=== PATIENT | male | born 1960 | race Two or more races ===

== ENCOUNTER 2017-03-21 05:47 | Emergency (ER) | payer BC ==
[2017-03-21 05:56] VITALS: TEMP 98.2
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
--- NOTE | 2017-03-21 07:42 | US ---
EXAMINATION TYPE: US venous doppler duplex LE LT DATE OF EXAM: 03/21/2017 7:32 AM COMPARISON: NONE CLINICAL HISTORY: 56-year-old male Pain. SIDE PERFORMED: Left TECHNIQUE: The lower extremity deep venous system is examined utilizing real time linear array sonog conner with graded compression, doppler sonography and color-flow sonography. FINDINGS: VESSELS IMAGED: External Iliac Vein (EIV) Common Femoral Vein Deep Femoral Vein Greater Saphenous Vein * Femoral Vein Popliteal Vein Small Saphenous Vein * Proximal Calf Veins (* superficial vessels) Left Leg: Positive for DVT starting in the CFV/DFV junction and extending through into the proximal calf veins. There is some trickle flow in the superficial femoral vein but it is noncompressible. IMPRESSION: Exam positive for left lower extremity DVT extending from the common femoral vein/deep femoral vein j unction down into the proximal calf veins.
[2017-03-21] MEDS ORDERED: APIXABAN 5 MG TAB PO STA (07:43)
[2017-03-21] MEDS ORDERED: HYDROcodone/APAP 5-325MG 1 EACH TAB PO STA (07:53)
[2017-03-21 08:04] VITALS: BP 135/75; PULSE 88; RESP 18
== END 2017-03-21 08:04 | disposition home or self-care (01) ==
LOC: EC 05:47
DX: I82.412 Acute embolism and thrombosis of left femoral vein (principal); F17.200 Nicotine dependence, unspecified, uncomplicated; Z98.890 Other specified postprocedural states; Z88.0 Allergy status to penicillin; Z91.048 Other nonmedicinal substance allergy status
CPT/HCPCS: 99283

== ENCOUNTER 2018-03-19 12:03 | Inpatient (IN) | payer BC ==
[2018-03-19] MEDS ORDERED: IPRATROPIUM-ALBUTEROL 3 ML NEB INHALATION STA (12:28)
[2018-03-19] MEDS ORDERED: methylPREDNISolone SOD SUCCI 125 MG/2 ML VIAL IV STA (12:33)
--- NOTE | 2018-03-19 12:44 | ED ---
URI HPI - General Chief Complaint: Upper Respiratory Infection Stated Complaint: collapsed lung Time Seen by Provider: 03/19/18 12:27 Source: patient, RN notes reviewed Mode of arrival: ambulatory Limitations: no limitations - History of Present Illness Initial Comments: This a 57-year-old male presents emergency Department chief complaint of cough congestion shortness of breath. Patient states that symptoms started Tuesday with sneezing and has progressively gotten worse. Patient states he feels chest congestion or shortness breath. Patient is a daily smoker. Patient reports no fever at home though has a temperature 99.8 in emergency department. He has received Tylenol white. Patient denies any nausea vomiting. He does feel pressure in his chest. Patient states he went to [facility] and sent here for further evaluation. - Related Data Previous Rx's Medication Instructions Recorded Apixaban [Eliquis] 5 mg PO BID #30 tablet 03/21/17 Apixaban [Eliquis] 10 mg PO BID #28 tab 03/21/17 HYDROcodone/APAP 5-325MG [Dunbar 1 tab PO Q6HR PRN #30 tab 03/21/17 5-325] Allergies Allergy/AdvReac Type Severity Reaction Status Date / Time Penicillins Allergy Rash/Hives Verified 03/19/18 12:26 wool Allergy Rash/Hives Uncoded 03/19/18 12:26 Review of Systems ROS Statement: Those systems with pertinent positive or pertinent negative responses have been documented in the HPI. ROS Other: All systems not noted in ROS Statement are negative. Past Medical History Past Medical History: Hypertension Additional Past Medical History / Comment(s): diarrhea, arthritis History of Any Multi-Drug Resistant Organisms: None Reported Past Surgical History: Orthopedic Surgery Additional Past Surgical History / Comment(s): surgery for fx left leg x 3, rt hand Past Anesthesia/Blood Transfusion Reactions: Previous Problems w/ Anesthesia Additional Past Anesthesia/Blood Transfusion Reaction / Comment(s): "i woke up during surgery" Smoking Status: Current every day smoker Past Alcohol Use History: Heavy Past Drug Use History: Marijuana - Past Family History Father Family Medical History: Cancer General Exam Limitations: no limitations General appearance: alert, in no apparent distress Head exam: Present: atraumatic, normocephalic, normal inspection Eye exam: Present: normal appearance, PERRL, EOMI. Absent: scleral icterus, conjunctival injection, periorbital swelling ENT exam: Present: normal exam, normal oropharynx, mucous membranes moist Neck exam: Present: normal inspection. Absent: tenderness, meningismus, lymphadenopathy Respiratory exam: Present: wheezes, rhonchi, decreased breath sounds. Absent: respiratory distress, rales, stridor Cardiovascular Exam: Present: regular rate, normal rhythm, normal heart sounds. Absent: systolic murmur, diastolic murmur, rubs, gallop, clicks GI/Abdominal exam: Present: soft, normal bowel sounds. Absent: distended, tenderness, guarding, rebound, rigid Course Vital Signs 03/19/18 03/19/18 03/19/18 12:23 12:44 13:11 Temperature 99.8 F H Pulse Rate 89 98 88 Respiratory 18 20 Rate Blood Pressure 162/76 O2 Sat by Pulse 92 L 97 Oximetry 03/19/18 03/19/18 03/19/18 13:40 13:47 13:56 Temperature Pulse Rate 94 91 Respiratory Rate Blood Pressure O2 Sat by Pulse 90 L Oximetry 03/19/18 14:21 Temperature Pulse Rate Respiratory Rate Blood Pressure O2 Sat by Pulse 97 Oximetry Medical Decision Making - Lab Data Result diagrams: 03/19/18 12:43 03/19/18 12:43 Lab Results 03/19/18 03/19/18 03/19/18 Range/Units 12:38 12:43 12:43 WBC 13.9 H (3.8-10.6) k/uL RBC 5.19 (4.30-5.90) m/uL Hgb 15.9 (13.0-17.5) gm/dL Hct 48.3 (39.0-53.0) % MCV 93.1 (80.0-100.0) fL MCH 30.7 (25.0-35.0) pg MCHC 33.0 (31.0-37.0) g/dL RDW 12.7 (11.5-15.5) % Plt Count 204 (150-450) k/uL Neutrophils % 83 % Lymphocytes % 8 % Monocytes % 6 % Eosinophils % 3 % Basophils % 0 % Neutrophils # 11.5 H (1.3-7.7) k/uL Lymphocytes # 1.1 (1.0-4.8) k/uL Monocytes # 0.8 (0-1.0) k/uL Eosinophils # 0.4 (0-0.7) k/uL Basophils # 0.0 (0-0.2) k/uL Sodium 142 (137-145) mmol/L Potassium 4.3 (3.5-5.1) mmol/L Chloride 104 (98-107) mmol/L Carbon Dioxide 23 (22-30) mmol/L Anion Gap 15 mmol/L BUN 13 (9-20) mg/dL Creatinine 0.70 (0.66-1.25) mg/dL Est GFR (CKD-EPI)AfAm >90 (>60 ml/min/1.73 sqM) Est GFR (CKD-EPI)NonAf >90 (>60 ml/min/1.73 sqM) Glucose 101 H (74-99) mg/dL Plasma Lactic Acid Javier (0.7-2.0) mmol/L Calcium 9.5 (8.4-10.2) mg/dL Total Bilirubin 0.8 (0.2-1.3) mg/dL AST 19 (17-59) U/L ALT 37 (21-72) U/L Alkaline Phosphatase 101 (38-126) U/L Troponin I (0.000-0.034) ng/mL Total Protein 7.3 (6.3-8.2) g/dL Albumin 4.3 (3.5-5.0) g/dL Influenza Type A RNA Not Detected (Not Detectd) Influenza Type B (PCR) Not Detected (Not Detectd) 03/19/18 03/19/18 Range/Units 12:43 12:43 WBC (3.8-10.6) k/uL RBC (4.30-5.90) m/uL Hgb (13.0-17.5) gm/dL Hct (39.0-53.0) % MCV (80.0-100.0) fL MCH (25.0-35.0) pg MCHC (31.0-37.0) g/dL RDW (11.5-15.5) % Plt Count (150-450) k/uL Neutrophils % % Lymphocytes % % Monocytes % % Eosinophils % % Basophils % % Neutrophils # (1.3-7.7) k/uL Lymphocytes # (1.0-4.8) k/uL Monocytes # (0-1.0) k/uL Eosinophils # (0-0.7) k/uL Basophils # (0-0.2) k/uL Sodium (137-145) mmol/L Potassium (3.5-5.1) mmol/L Chloride (98-107) mmol/L Carbon Dioxide (22-30) mmol/L Anion Gap mmol/L BUN (9-20) mg/dL Creatinine (0.66-1.25) mg/dL Est GFR (CKD-EPI)AfAm (>60 ml/min/1.73 sqM) Est GFR (CKD-EPI)NonAf (>60 ml/min/1.73 sqM) Glucose (74-99) mg/dL Plasma Lactic Acid Javier 1.3 (0.7-2.0) mmol/L Calcium (8.4-10.2) mg/dL Total Bilirubin (0.2-1.3) mg/dL AST (17-59) U/L ALT (21-72) U/L Alkaline Phosphatase (38-126) U/L Troponin I <0.012 (0.000-0.034) ng/mL Total Protein (6.3-8.2) g/dL Albumin (3.5-5.0) g/dL Influenza Type A RNA (Not Detectd) Influenza Type B (PCR) (Not Detectd) Disposition Clinical Impression: COPD exacerbation, Hypoxia, Dyspnea Disposition: ADMITTED IP TO THIS HOSP Condition: Fair Referrals: Magdi Almanzar MD [Primary Care Provider] - 1-2 days
[2018-03-19 13:02] LABS: Basophils % (A) 0 %; Eosinophils # (A) 0.4 k/uL (0-0.7); Eosinophils % (A) 3 %; HCT 48.3 % (39.0-53.0); HGB 15.9 gm/dL (13.0-17.5); Lymphocytes # (A) 1.1 k/uL (1.0-4.8); Lymphocytes % (A) 8 %; MCH 30.7 pg (25.0-35.0); MCV 93.1 fL (80.0-100.0); Mean Platelet Volume 6.9; Monocytes # (A) 0.8 k/uL (0-1.0); Monocytes % (A) 6 %; Neutrophils # (A) 11.5 k/uL (1.3-7.7); Neutrophils % (A) 83 %; Platelet Count 204 k/uL (150-450); RBC 5.19 m/uL (4.30-5.90); RDW 12.7 % (11.5-15.5); WBC 13.9 k/uL (3.8-10.6)
[2018-03-19 13:11] LABS: ALT 37 U/L (21-72); AST 19 U/L (17-59); Albumin 4.3 g/dL (3.5-5.0); Alkaline Phosphatase 101 U/L (38-126); Anion Gap 15 mmol/L; Blood Urea Nitrogen 13 mg/dL (9-20); Calcium 9.5 mg/dL (8.4-10.2); Carbon Dioxide 23 mmol/L (22-30); Chloride 104 mmol/L (98-107); Glucose 101 mg/dL (74-99); Potassium 4.3 mmol/L (3.5-5.1); Sodium 142 mmol/L (137-145); Total Bilirubin 0.8 mg/dL (0.2-1.3); Total Protein 7.3 g/dL (6.3-8.2)
--- NOTE | 2018-03-19 13:17 | XR ---
EXAMINATION TYPE: XR chest 2V DATE OF EXAM: 03/19/2018 HISTORY: Cough/pain. REFERENCE: NONE. FINDINGS: The lungs are overinflated but clear. Pleural spaces are clear. The heart is not enlarged. IMPRESSION: COPD.
[2018-03-19] MEDS ORDERED: ALBUTEROL NEBULIZED 2.5 MG/3 ML INHALATION STA (13:39)
[2018-03-19] MEDS ORDERED: AZITHROMYCIN 500 MG in SODIUM CHLORIDE 0.9% 250 ML IVPB STA (14:26)
[2018-03-19] MEDS ORDERED: cefTRIAXone IN SWFI 1,000 MG/10 ML SYRINGE IVP STA (14:26)
[2018-03-19] MEDS ORDERED: ACETAMINOPHEN TAB 325 MG TAB PO PRN (15:26)
[2018-03-19 16:27] VITALS: BMI 40.8
[2018-03-19 16:56] LABS: Glucose,Whole Blood 162 mg/dL (75-99)
[2018-03-19] MEDS: methylPREDNISolone SOD SUCCI 125 MG/2 ML VIAL IV SCH ×2 (17:05→23:31)
[2018-03-19 20:39] LABS: Glucose,Whole Blood 184 mg/dL (75-99)
[2018-03-19] MEDS ORDERED: LORazepam 0.5 MG TAB PO PRN (23:03)
[2018-03-19] MEDS ORDERED: ALPRAZolam 0.25 MG TAB PO PRN (23:03)
[2018-03-19] MEDS ORDERED: IPRATROPIUM-ALBUTEROL 3 ML NEB INHALATION PRN (23:03)
[2018-03-20] MEDS ORDERED: LEVOFLOXACIN 500MG-D5W PMX 500 MG in DEXTROSE/WATER 1 100ML.BAG IVPB SCH
--- NOTE | 2018-03-20 05:47 | HP ---
HISTORY AND PHYSICAL DATE OF SERVICE: 03/19/2018 I am covering for Dr. Almanzar. CHIEF COMPLAINT: Shortness of breath and cough. HISTORY OF PRESENT ILLNESS: This 57-year-old gentleman with a past medical history of DVT, history of hypertension, history of diarrhea, arthritis being followed by Dr. Almanzar in the outpatient setting, was complaining of shortness of breath and congestion for the last several months actually, because of increasing difficulty the patient came to [facility] and admitted for further evaluation and treatment. The temperature 99.8 in emergency room. Patient continues to smoke. COPD acute exacerbation was suspected. The patient also had significant snoring and possible/sleep apnea as well. WBC 13.9. Influenza is negative and a chest x-ray was done in the ER which showed possible COPD and the EKG showed no acute abnormality except possible right axis deviation. There is no history of fever, rigors. No headache, loss of consciousness, seizures. PAST MEDICAL HISTORY: DVT, history of hypertension, diarrhea, arthritis, DJD. MEDICATIONS: Prior to admission: None. ALLERGIES: PENICILLIN, WOOL. FAMILY HISTORY: History of cancer in the family. SOCIAL HISTORY: History of alcohol, occasional THC, history of previous smoking. REVIEW OF SYSTEMS: ENT: No diminished hearing or vision. CARDIOVASCULAR: No angina. RESPIRATORY: As mentioned earlier. GI: No nausea. : No dysuria. NERVOUS SYSTEM: No numbness, weakness. ALLERGY/IMMUNOLOGY: As mentioned earlier. MUSCULOSKELETAL: As mentioned earlier. HEMATOLOGY/ONCOLOGY: No history of anemia. ENDOCRINE: No history of diabetes or hypothyroidism. CONSTITUTIONAL: As mentioned earlier. DERMATOLOGY: Negative. RHEUMATOLOGY: Negative. PSYCHIATRY: As mentioned earlier. PHYSICAL EXAM: Patient is alert, oriented x3. The pulse is 97, blood pressure 130/80, respiration 18, temperature 100 degrees Fahrenheit, pulse ox 94% on 2 L. HEENT: Conjunctivae normal. Oral mucosa moist. Neck is no jugular venous distention. No carotid bruit. No lymph node enlargement. CARDIOVASCULAR: S1, S2. No S3, no S4. RESPIRATORY: Breath sounds diminished in the bases. Bilateral scattered rhonchi and expiratory wheezing and rhonchi and crackles. ABDOMEN: Soft, nontender. No mass palpable. LEGS: No edema, no swelling. NERVOUS SYSTEM: Higher functions as mentioned earlier, moves all 4 limbs, no focal motor deficits. LYMPHATICS: No lymphadenopathy in the neck, axillae, groin. SKIN: No ulcer, rash, bleeding. LAB DATA: At this time shows WBC 13, hemoglobin 15, Accu-Cheks 162. Influenza is negative. ASSESSMENT: 1. Chronic obstructive pulmonary disease acute exacerbation with acute purulent tracheobronchitis. 2. Continued ongoing nicotine dependence. 3. Possible sleep apnea. 4. Obesity with body mass index of 33.8. 5. Deep venous thrombosis. 6. Hypertension. 7. History of diarrhea. 8. History of degenerative joint disease. 9. History of EtOH. RECOMMENDATIONS AND DISCUSSION This 57-year-old gentleman who presented with multiple complex medical issues. At this time, I recommend to continue current medications, optimize bronchodilator treatment, empiric antibiotics. IV steroids. Monitor blood sugars closely. I would also recommend pulmonary consultation for a possible outpatient PFTs and as well as sleep studies to rule out the possible sleep apnea and COPD. Smoking cessation advice has been given. Will follow the patient closely. Guarded prognosis because of multiple complex medical issues. Further recommendations to follow. Copy of dictation forwarded to Dr. Almanzar who is the primary physician. MMODL / IJN: [id number] /
[2018-03-20] MEDS: methylPREDNISolone SOD SUCCI 125 MG/2 ML VIAL IV SCH ×4 (06:46→23:55)
[2018-03-20 07:00] LABS: Glucose,Whole Blood 141 mg/dL (75-99)
--- NOTE | 2018-03-20 07:15 | P.PN ---
Subjective Progress Note Date: 03/20/18 Principal diagnosis: Exacerbation COPD. This is a 57-year-old white male with history of DVT who has element of upper respiratory infection which then spread supposedly to the lower respiratory element. Cough is productive of significant clear phlegm but thick. No voiding difficulties. He does feel much better. No lower 70 swelling. Objective - Vital Signs Vital signs: Vital Signs Temp 97.4 F L 03/20/18 05:30 Pulse 95 03/20/18 05:30 Resp 16 03/20/18 05:30 BP 141/79 03/20/18 05:30 Pulse Ox 98 03/20/18 05:30 Intake & Output 03/19/18 03/20/18 03/20/18 18:59 06:59 18:59 Weight 148 kg Other: # Voids 2 - Constitutional General appearance: Present: obese - EENT Eyes: Absent: abnormal pupil - Respiratory Respiratory: left: rhonchi - Cardiovascular Rhythm: regular Heart sounds: normal: S1, S2 Abnormal Heart Sounds: Absent: S3 Gallop - Gastrointestinal General gastrointestinal: Present: soft. Absent: tenderness - Neurologic Neurologic: Present: CNII-XII intact - Psychiatric Psychiatric: Present: A&O x's 3, appropriate affect - Labs CBC & Chem 7: 03/19/18 12:43 03/19/18 12:43 Labs: Abnormal Lab Results - Last 24 Hours (Table) 03/19/18 03/19/18 03/19/18 Range/Units 12:43 12:43 16:54 WBC 13.9 H (3.8-10.6) k/uL Neutrophils # 11.5 H (1.3-7.7) k/uL Glucose 101 H (74-99) mg/dL POC Glucose (mg/dL) 162 H (75-99) mg/dL 03/19/18 03/20/18 Range/Units 20:32 06:53 WBC (3.8-10.6) k/uL Neutrophils # (1.3-7.7) k/uL Glucose (74-99) mg/dL POC Glucose (mg/dL) 184 H 141 H (75-99) mg/dL Assessment and Plan (1) COPD exacerbation Current Visit: Yes Status: Acute Code(s): J44.1 - CHRONIC OBSTRUCTIVE PULMONARY DISEASE W (ACUTE) EXACERBATION SNOMED Code(s): 102649476 (2) Hypoxia Current Visit: Yes Status: Acute Code(s): R09.02 - HYPOXEMIA SNOMED Code(s ): 018451398
[2018-03-20] MEDS: IPRATROPIUM-ALBUTEROL 3 ML NEB INHALATION PRN ×3 (07:36→20:23)
[2018-03-20] MEDS: SYMBICORT 160-4.5 MCG INHALER INHALATION SCH ×2 (07:36→20:22)
[2018-03-20] MEDS: PANTOPRAZOLE 40 MG TABLET PO SCH (07:53)
[2018-03-20] MEDS: INSULIN ASPART 100 UNIT/ML 1 ML 10 ML VIAL SQ SCH ×4 (07:53→21:49)
[2018-03-20] MEDS: MULTIVITAMINS, THERA 1 EACH TAB PO SCH (07:56)
[2018-03-20] MEDS: HEPARIN SODIUM,PORCINE 5,000 UNIT/ML 1 ML VIAL SQ SCH ×2 (08:06→20:46)
[2018-03-20 08:09] LABS: Basophils % (A) 0 %; Eosinophils % (A) 0 %; HGB 16.3 gm/dL (13.0-17.5); Lymphocytes # (A) 0.7 k/uL (1.0-4.8); Lymphocytes % (A) 4 %; MCH 31.5 pg (25.0-35.0); MCV 92.6 fL (80.0-100.0); Mean Platelet Volume 7.1; Monocytes # (A) 0.4 k/uL (0-1.0); Monocytes % (A) 2 %; Neutrophils # (A) 16.4 k/uL (1.3-7.7); Neutrophils % (A) 93 %; Platelet Count 217 k/uL (150-450); RBC 5.18 m/uL (4.30-5.90); RDW 12.4 % (11.5-15.5); WBC 17.6 k/uL (3.8-10.6)
[2018-03-20 08:27] LABS: Anion Gap 13 mmol/L; Blood Urea Nitrogen 15 mg/dL (9-20); Calcium 9.4 mg/dL (8.4-10.2); Carbon Dioxide 25 mmol/L (22-30); Chloride 103 mmol/L (98-107); Glucose 153 mg/dL (74-99); Potassium 4.6 mmol/L (3.5-5.1); Sodium 141 mmol/L (137-145)
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
[2018-03-20 11:39] LABS: Glucose,Whole Blood 133 mg/dL (75-99)
[2018-03-20 16:50] LABS: Glucose,Whole Blood 136 mg/dL (75-99)
[2018-03-20] MEDS: guaiFENesin 600 MG TABLET.ER PO SCH (20:46)
[2018-03-20 21:13] LABS: Glucose,Whole Blood 141 mg/dL (75-99)
[2018-03-20 21:16] LABS: Hemoglobin A1C 5.1 % (4.0-6.0)
[2018-03-20] MEDS: LEVOFLOXACIN 500 MG TAB PO SCH (23:55)
[2018-03-21] MEDS: IPRATROPIUM-ALBUTEROL 3 ML NEB INHALATION PRN ×4 (00:10→16:30)
[2018-03-21] MEDS: methylPREDNISolone SOD SUCCI 125 MG/2 ML VIAL IV SCH ×4 (05:33→23:04)
[2018-03-21] MEDS: guaiFENesin SYRUP 100MG/5ML 200 MG/10 ML CUP PO PRN ×2 (05:34→17:01)
[2018-03-21 07:08] LABS: Glucose,Whole Blood 136 mg/dL (75-99)
[2018-03-21] MEDS: SYMBICORT 160-4.5 MCG INHALER INHALATION SCH ×2 (07:31→21:02)
--- NOTE | 2018-03-21 08:09 | XR ---
EXAMINATION TYPE: XR chest 2V DATE OF EXAM: 03/21/2018 COMPARISON: 03/19/2018 HISTORY: 57-year-old male with history of pneumonia TECHNIQUE: Frontal and lateral views FINDINGS: Heart normal size. Aorta and pulmonary vasculature within normal limits. Mild diffuse interstitial pr ominence and mild hyperinflation. Some strandy atelectasis remains in the lower lungs. No consolidati on or pleural effusion. IMPRESSION: Similar changes with COPD. No acute process seen.
[2018-03-21] MEDS: PANTOPRAZOLE 40 MG TABLET PO SCH (08:39)
[2018-03-21] MEDS: guaiFENesin 600 MG TABLET.ER PO SCH ×2 (08:39→20:43)
[2018-03-21] MEDS: HEPARIN SODIUM,PORCINE 5,000 UNIT/ML 1 ML VIAL SQ SCH ×2 (08:39→20:44)
[2018-03-21] MEDS: INSULIN ASPART 100 UNIT/ML 1 ML 10 ML VIAL SQ SCH ×4 (08:52→20:43)
[2018-03-21 12:08] LABS: Glucose,Whole Blood 132 mg/dL (75-99)
[2018-03-21] MEDS: MULTIVITAMINS, THERA 1 EACH TAB PO SCH (12:20)
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
[2018-03-21 17:04] LABS: Glucose,Whole Blood 134 mg/dL (75-99)
[2018-03-21 20:50] LABS: Glucose,Whole Blood 143 mg/dL (75-99)
[2018-03-21] MEDS: LEVOFLOXACIN 500 MG TAB PO SCH (23:04)
--- NOTE | 2018-03-21 23:08 | P.PN ---
Subjective Principal diagnosis: Continuing care This is a continue present on a 57-year-old white male essentially admitted for chronic bronchitis with exacerbation of COPD. The patient has underlying history of previous DVT. Much better improvement. Still some cough and production of phlegm. Appreciate pulmonology input. Objective - Vital Signs Vital signs: Vital Signs Temp 97.3 F L 03/21/18 15:00 Pulse 80 03/21/18 16:42 Resp 16 03/21/18 15:00 BP 139/84 03/21/18 15:00 Pulse Ox 93 L 03/21/18 15:00 Intake & Output 03/21/18 03/21/18 03/22/18 06:59 18:59 06:59 Intake Total 500 Balance 500 Weight 148 kg 148 kg Intake: Oral 500 Other: # Voids 1 4 # Bowel Movements 1 - Constitutional General appearance: Present: obese - EENT Eyes: Absent: abnormal pupil - Respiratory Respiratory: bilateral: rhonchi - Cardiovascular Rhythm: regular Heart sounds: normal: S1, S2 Abnormal Heart Sounds: Absent: S3 Gallop - Gastrointestinal General gastrointestinal: Present: soft. Absent: splenomegaly, tenderness - Labs CBC & Chem 7: 03/20/18 07:36 03/20/18 07:36 Labs: Abnormal Lab Results - Last 24 Hours (Table) 03/21/18 03/21/18 03/21/18 Range/Units 07:04 12:07 16:59 POC Glucose (mg/dL) 136 H 132 H 134 H (75-99) mg/dL 03/21/18 Range/Units 20:38 POC Glucose (mg/dL) 143 H (75-99) mg/dL Microbiology - Last 24 Hours (Table) 03/19/18 12:43 Blood Culture - Preliminary Blood No Growth after 48 hours 03/20/18 11:44 Gram Stain - Preliminary Sputum Assessment and Plan (1) COPD exacerbation Current Visit: Yes Status: Acute Code(s): J44.1 - CHRONIC OBSTRUCTIVE PULMONARY DISEASE W (ACUTE) EXACERBATION SNOMED Code(s): 893039953 (2) Hypoxia Current Visit: Yes Status: Acute Code(s): R09.02 - HYPOXEMIA SNOMED Code(s ): 021045801 Plan: Continue current regimen of treatment. The patient will hopefully slowly wean off of steroid treatment later this hospitalization. Otherwise, check CBC and CMP in a.m. Despite discharge in the 24-48 hours.
[2018-03-22 00:51] VITALS: RESP 20
[2018-03-22] MEDS: methylPREDNISolone SOD SUCCI 125 MG/2 ML VIAL IV SCH (05:25)
[2018-03-22 07:03] LABS: Glucose,Whole Blood 111 mg/dL (75-99)
[2018-03-22] MEDS: INSULIN ASPART 100 UNIT/ML 1 ML 10 ML VIAL SQ SCH (07:04)
[2018-03-22] MEDS: SYMBICORT 160-4.5 MCG INHALER INHALATION SCH (07:20)
[2018-03-22] MEDS: IPRATROPIUM-ALBUTEROL 3 ML NEB INHALATION PRN (07:21)
[2018-03-22] MEDS: HEPARIN SODIUM,PORCINE 5,000 UNIT/ML 1 ML VIAL SQ SCH (07:31)
[2018-03-22] MEDS: PANTOPRAZOLE 40 MG TABLET PO SCH (07:31)
[2018-03-22] MEDS: guaiFENesin 600 MG TABLET.ER PO SCH (07:31)
[2018-03-22] MEDS: guaiFENesin SYRUP 100MG/5ML 200 MG/10 ML CUP PO PRN (07:31)
[2018-03-22 07:40] VITALS: BP 155/76; PULSE 70; TEMP 98.1
--- NOTE | 2018-03-22 08:09 | P.DS ---
Providers Date of admission: 03/19/18 15:23 Attending physician: Magdi Almanzar Consults: 03/19/18 23:02 Consult Physician Routine Consulting Provider: Cyril Bray Consult Reason/Comments: copd, sleep apnea Do you want consulting provider notified?: Yes Primary care physician: Magdi Almanzar - Discharge Diagnosis(es) (1) COPD exacerbation Current Visit: Yes Status: Acute (2) Hypoxia Current Visit: Yes Status: Acute Hospital Course: This discharge summary on a 57-year-old white male essentially admitted for exacerbation of COPD. Appropriate treatment was given pulmonology was consulted and he is stabilizing. We had a long discussion regarding tobacco abuse. The patient will be discharged in stable condition to follow-up with me in one week. Patient Condition at Discharge: Fair Plan - Discharge Summary Discharge Rx Participant: Yes New Discharge Prescriptions: New Fluticasone/Salmeterol [Advair 250-50 Diskus] 1 inhalation PO BID #1 inhaler Levofloxacin [Levaquin] 500 mg PO Q24H #7 tab predniSONE 0 mg PO DIRECTED #18 tab Discharge Medication List Fluticasone/Salmeterol [Advair 250-50 Diskus] 1 inhalation PO BID #1 inhaler [Rx] Levofloxacin [Levaquin] 500 mg PO Q24H #7 tab 03/22/18 [Rx] predniSONE 0 mg PO DIRECTED #18 tab 03/22/18 [Rx] Follow up Appointment(s)/Referral(s): Cyril Bray MD [STAFF PHYSICIAN] - 1 Week Magdi Almanzar MD [Primary Care Provider] - 1 Week Patient Instructions/Handouts: COPD (Chronic Obstructive Pulmonary Disease) ( GEN), Chronic Lung Disease and Infection Prevention (GEN), Nutrition Guidelines for People with COPD (GEN) Discharge Disposition: HOME SELF-CARE
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
== END 2018-03-22 09:41 | disposition home or self-care (01) | DRG 192 ==
LOC: EC 12:03 → 4MS4W 15:23
PROVIDERS: ADMIT Family Medicine; ATTEND Family Medicine
DX: J44.1 Chronic obstructive pulmonary disease with (acute) exacerbation (principal); E66.01 Morbid (severe) obesity due to excess calories; F17.210 Nicotine dependence, cigarettes, uncomplicated; G47.33 Obstructive sleep apnea (adult) (pediatric); I10 Essential (primary) hypertension; J20.9 Acute bronchitis, unspecified; J44.0 Chronic obstructive pulmonary disease with (acute) lower respiratory infection; R09.02 Hypoxemia; M19.90 Unspecified osteoarthritis, unspecified site; R73.9 Hyperglycemia, unspecified; J45.30 Mild persistent asthma, uncomplicated; Z68.33 Body mass index [BMI] 33.0-33.9, adult; Z79.01 Long term (current) use of anticoagulants; Z86.718 Personal history of other venous thrombosis and embolism; Z88.0 Allergy status to penicillin; Z91.048 Other nonmedicinal substance allergy status; Z71.6 Tobacco abuse counseling; Z80.9 Family history of malignant neoplasm, unspecified
CPT/HCPCS: 36415; 71046; 80048; 80053; 83036; 83605; 84484; 85025; 87040; 87070; 87205; 87502; 93005; 94640; 94760; 96365; 96375; 99284

== ENCOUNTER → 2018-03-31 | Outpatient (CLI) | payer BC ==
--- NOTE | 2018-03-31 14:39 | XR ---
EXAMINATION TYPE: XR Hip Complete LT DATE OF EXAM: 03/31/2018 CLINICAL HISTORY: Left hip pain. TECHNIQUE: AP and frogleg views of the left hip are obtained. COMPARISON: None. FINDINGS: There is no acute fracture/dislocation evident in the left hip. Mild femoral acetabular ar thropathy is seen as cephalad joint space narrowing and acetabular roof sclerosis with small subchond ral cyst. The overlying soft tissue appears unremarkable. IMPRESSION: There is no acute fracture or dislocation in the left hip. Mild left femoral acetabular arthropathy.
== END | disposition home or self-care (01) ==
LOC: RADXRMAIN 13:49
PROVIDERS: ATTEND Family Medicine
DX: M16.12 Unilateral primary osteoarthritis, left hip (principal)
CPT/HCPCS: 73502

== ENCOUNTER → 2018-04-18 | Outpatient (CLI) | payer BC ==
--- NOTE | 2018-04-18 13:50 | US ---
EXAMINATION TYPE: US venous doppler duplex LE LT DATE OF EXAM: 04/18/2018 1:38 PM COMPARISON: 03/21/2017 CLINICAL HISTORY: I82.402 DVT. left leg swelling, prev DVT, pt not on blood thinners SIDE PERFORMED: Left TECHNIQUE: The lower extremity deep venous system is examined utilizing real time linear array sonog conner with graded compression, doppler sonography and color-flow sonography. VESSELS IMAGED: External Iliac Vein (EIV) Common Femoral Vein Deep Femoral Vein Greater Saphenous Vein * Femoral Vein Popliteal Vein Small Saphenous Vein * Proximal Calf Veins (* superficial vessels) Left Leg: Negative for DVT Results called to Dr. Bray at time of exam IMPRESSION: 1. No diagnostic evidence of DVT as visualized.
[2018-04-19 11:54] LABS: Alt. alternata IgE Class CLASS 0; Alternaria alternata IgE <0.35 kU/L (<0.35); Asperg. fumagatus IgE <0.35 kU/L (<0.35); Asperg. fumagatus IgE Class CLASS 0; Bermuda Grass IgE <0.35 kU/L (<0.35); Birch(Com.Silvr) IgE <0.35 kU/L (<0.35); Birch(Com.Silvr) IgE Class CLASS 0; Cat Epith & Dander IgE <0.35 kU/L (<0.35); Cat Epith & Dander IgE Class CLASS 0; Clad herbarum IgE <0.35 kU/L (<0.35); Cockroach IgE <0.35 kU/L (<0.35); Cottonwood IgE <0.35 kU/L (<0.35); Dermato. Pteronyssinus IgE 0.69 kU/L (<0.35); Dermato. farinae IgE <0.35 kU/L (<0.35); Dermato. farinae IgE Class CLASS 0; Dog Dander IgE <0.35 kU/L (<0.35); Elm IgE <0.35 kU/L (<0.35); Maple (Box Elder) IgE <0.35 kU/L (<0.35); Maple (Box Elder) IgE Class CLASS 0; Mountain Cedar IgE <0.35 kU/L (<0.35); Mountain Cedar IgE Class CLASS 0; Mouse Urine IgE Class CLASS 0; Nettle IgE <0.35 kU/L (<0.35); Nettle IgE Class CLASS 0; Oak IgE <0.35 kU/L (<0.35); Penicillium notatum IgE Class CLASS 0; Rough Marshelder IgE <0.35 kU/L (<0.35); Rough Marshelder IgE Class CLASS 0; Timothy Grass IgE <0.35 kU/L (<0.35); White Ash IgE Class CLASS 0
== END | disposition home or self-care (01) ==
LOC: RADUSWWP 13:17
PROVIDERS: ATTEND Internal Medicine Sleep Medicine
DX: I82.402 Acute embolism and thrombosis of unspecified deep veins of left lower extremity (principal); B44.81 Allergic bronchopulmonary aspergillosis
CPT/HCPCS: 36415; 82785; 86001; 86003; 86606; 86609

== ENCOUNTER → 2019-03-19 | Outpatient (CLI) | payer BC ==
--- NOTE | 2019-03-19 15:46 | US ---
EXAMINATION TYPE: US venous doppler duplex LE RT DATE OF EXAM: 03/19/2019 3:25 PM COMPARISON: NONE CLINICAL HISTORY: 58-year-old male M79.661 Pain in Right lower limb, Z86.718 HX DVT. Right leg pain. SIDE PERFORMED: Right TECHNIQUE: The lower extremity deep venous system is examined utilizing real time linear array sonog conner with graded compression, doppler sonography and color-flow sonography. FINDINGS: VESSELS IMAGED: External Iliac Vein (EIV) Common Femoral Vein Deep Femoral Vein Greater Saphenous Vein * Femoral Vein Popliteal Vein Small Saphenous Vein * Proximal Calf Veins (* superficial vessels) Right Leg: Negative for DVT No evidence of DVT right leg. IMPRESSION: No evidence for DVT within the right lower extremity imaged from the groin to the upper calf.
== END | disposition home or self-care (01) ==
LOC: RADUSWWP 14:58
PROVIDERS: ATTEND Family Medicine
DX: M79.661 Pain in right lower leg (principal); Z86.718 Personal history of other venous thrombosis and embolism; Z88.0 Allergy status to penicillin; Z91.048 Other nonmedicinal substance allergy status

== ENCOUNTER → 2020-09-17 | Outpatient (CLI) | payer OTHER ==
[2020-09-17 11:14] LABS: Basophils # (A) 0.1 k/uL (0-0.2); Basophils % (A) 1 %; Eosinophils # (A) 0.4 k/uL (0-0.7); Eosinophils % (A) 5 %; HCT 49.7 % (39.0-53.0); Lymphocytes # (A) 2.1 k/uL (1.0-4.8); Lymphocytes % (A) 27 %; MCH 31.8 pg (25.0-35.0); MCHC 32.1 g/dL (31.0-37.0); MCV 99.1 fL (80.0-100.0); Mean Platelet Volume 6.7; Monocytes # (A) 0.6 k/uL (0-1.0); Monocytes % (A) 7 %; Neutrophils # (A) 4.7 k/uL (1.3-7.7); Neutrophils % (A) 58 %; Platelet Count 216 k/uL (150-450); RBC 5.02 m/uL (4.30-5.90); RDW 13.2 % (11.5-15.5)
[2020-09-17 18:45] LABS: African American GFR (CKD) 94.4 (60.0-200.0); Albumin 4.2 g/dL (3.80-4.90); Albumin/Globulin Ratio 1.62 (1.60-3.17); Anion Gap 3.8 mmol/L (4.00-12.00); Calcium 9.5 mg/dL (8.7-10.3); Carbon Dioxide 30.2 mmol/L (21.6-31.8); Globulin 2.6 g/dL (1.6-3.3); Non-African American GFR(CKD) 81.4 (60.0-200.0); Potassium 4.9 mmol/L (3.5-5.5); Total Bilirubin 0.5 mg/dL (0.3-1.2); Total Protein 6.8 g/dL (6.2-8.2)
== END | disposition home or self-care (01) ==
LOC: LABWHC1 09:30
PROVIDERS: ATTEND Thoracic Surgery (Cardiothoracic Vascular Surgery)
DX: I83.023 Varicose veins of left lower extremity with ulcer of ankle (principal); L97.322 Non-pressure chronic ulcer of left ankle with fat layer exposed; F17.210 Nicotine dependence, cigarettes, uncomplicated; E66.01 Morbid (severe) obesity due to excess calories; Z88.0 Allergy status to penicillin; Z91.09 Other allergy status, other than to drugs and biological substances
CPT/HCPCS: 36415; 80053; 84134; 85025

== ENCOUNTER 2021-07-11 13:04 | Emergency (ER) | payer OTHER ==
[2021-07-11 13:16] VITALS: BP 146/82; PULSE 99; RESP 18; TEMP 98.2
[2021-07-11 14:24] LABS: ALT 20 U/L (4-49); AST 21 U/L (17-59); African American GFR (CKD) >90 (>60 ml/min/1.73 sqM); Albumin 3.8 g/dL (3.5-5.0); Alkaline Phosphatase 104 U/L (38-126); Anion Gap 7 mmol/L; Blood Urea Nitrogen 14 mg/dL (9-20); Calcium 9.3 mg/dL (8.4-10.2); Carbon Dioxide 28 mmol/L (22-30); Chloride 102 mmol/L (98-107); Glucose 137 mg/dL (74-99); Non-African American GFR(CKD) >90 (>60 ml/min/1.73 sqM); Potassium 4.2 mmol/L (3.5-5.1); Sodium 137 mmol/L (137-145); Total Bilirubin 0.7 mg/dL (0.2-1.3); Total Protein 6.9 g/dL (6.3-8.2)
[2021-07-11 14:27] LABS: Basophils # (A) 0.1 k/uL (0-0.2); Basophils % (A) 1 %; Eosinophils # (A) 0.3 k/uL (0-0.7); Eosinophils % (A) 3 %; HCT 49.9 % (39.0-53.0); HGB 16.6 gm/dL (13.0-17.5); Lymphocytes # (A) 1.4 k/uL (1.0-4.8); Lymphocytes % (A) 14 %; MCH 33.4 pg (25.0-35.0); MCHC 33.3 g/dL (31.0-37.0); MCV 100.2 fL (80.0-100.0); Monocytes # (A) 0.6 k/uL (0-1.0); Monocytes % (A) 6 %; Neutrophils # (A) 7.7 k/uL (1.3-7.7); Neutrophils % (A) 75 %; Platelet Count 250 k/uL (150-450); RBC 4.98 m/uL (4.30-5.90); RDW 13.3 % (11.5-15.5); WBC 10.3 k/uL (3.8-10.6)
--- NOTE | 2021-07-11 14:38 | US ---
EXAMINATION TYPE: US venous doppler duplex LE LT DATE OF EXAM: 07/11/2021 2:29 PM COMPARISON: 04/18/2018 CLINICAL HISTORY: pain. Pain. Hx DVT. Patient takes aspirin. SIDE PERFORMED: Left TECHNIQUE: The lower extremity deep venous system is examined utilizing real time linear array sonog conner with graded compression, doppler sonography and color-flow sonography. VESSELS IMAGED: Common Femoral Vein Deep Femoral Vein Greater Saphenous Vein * Femoral Vein Popliteal Vein Small Saphenous Vein * Proximal Calf Veins (* superficial vessels) Exam is limited due to patient body habitus. Left Leg: Internal echoes are seen within the distal segment of the femoral vein. Color defect is sh own at this level. Distal femoral vein appears to compress incompletely. Color flow is seen in remain ing veins imaged. Hypoechoic area with hyperechoic center seen in the left groin: 2.3 x 2.2 x 1.0 cm. IMPRESSION: There is evidence of chronic deep vein thrombosis in the left femoral vein. This appears new compared to old exam.
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
== END 2021-07-11 15:57 | disposition home or self-care (01) ==
LOC: EC 13:04
DX: I82.402 Acute embolism and thrombosis of unspecified deep veins of left lower extremity (principal); I10 Essential (primary) hypertension; J44.9 Chronic obstructive pulmonary disease, unspecified; F17.200 Nicotine dependence, unspecified, uncomplicated; F12.90 Cannabis use, unspecified, uncomplicated; Z79.899 Other long term (current) drug therapy
CPT/HCPCS: 36415; 80053; 85025; 99284

== ENCOUNTER 2021-07-20 08:08 | Emergency (ER) | payer OTHER ==
[2021-07-20 08:54] VITALS: RESP 18; TEMP 98.1
[2021-07-20] MEDS ORDERED: MORPHINE SULFATE 4 MG/ML SYRINGE IVP STA (09:08)
[2021-07-20 09:26] LABS: Basophils # (A) 0.1 k/uL (0-0.2); Basophils % (A) 1 %; Eosinophils # (A) 0.4 k/uL (0-0.7); Eosinophils % (A) 4 %; HCT 48.8 % (39.0-53.0); Lymphocytes # (A) 1.6 k/uL (1.0-4.8); Lymphocytes % (A) 15 %; MCHC 34.8 g/dL (31.0-37.0); MCV 97.8 fL (80.0-100.0); Mean Platelet Volume 7.2; Monocytes # (A) 0.7 k/uL (0-1.0); Monocytes % (A) 7 %; Neutrophils # (A) 7.3 k/uL (1.3-7.7); Neutrophils % (A) 73 %; Platelet Count 313 k/uL (150-450); RBC 4.99 m/uL (4.30-5.90); RDW 11.8 % (11.5-15.5)
[2021-07-20 09:43] LABS: ALT 24 U/L (4-49); AST 24 U/L (17-59); African American GFR (CKD) >90 (>60 ml/min/1.73 sqM); Albumin 3.9 g/dL (3.5-5.0); Alkaline Phosphatase 114 U/L (38-126); Anion Gap 9 mmol/L; Blood Urea Nitrogen 15 mg/dL (9-20); Calcium 9.4 mg/dL (8.4-10.2); Carbon Dioxide 27 mmol/L (22-30); Chloride 100 mmol/L (98-107); Glucose 105 mg/dL (74-99); Non-African American GFR(CKD) >90 (>60 ml/min/1.73 sqM); Potassium 4.5 mmol/L (3.5-5.1); Sodium 136 mmol/L (137-145); Total Bilirubin 0.6 mg/dL (0.2-1.3); Total Protein 7.5 g/dL (6.3-8.2)
--- NOTE | 2021-07-20 10:04 | XR ---
EXAMINATION TYPE: XR tibia fibula LT DATE OF EXAM: 07/20/2021 CLINICAL HISTORY: Pain and swelling. Open wound medially near ankle. TECHNIQUE: Two views of the left leg are obtained. COMPARISON: None. FINDINGS: There is healed fracture deformity distal diaphysis left tibia and fibula. Some heterotopic ossification is present. No suspicious bony destruction is identified. Chronic periosteal thickening is noted. Some ossification of the interosseous membrane is seen. Occasional soft tissue density or phlebolith. No acute fracture or dislocation. IMPRESSION: As above. No radiographic evidence for acute osteomyelitis.
--- NOTE | 2021-07-20 10:22 | US ---
EXAMINATION TYPE: US venous doppler duplex LE LT DATE OF EXAM: 07/20/2021 10:07 AM COMPARISON: NONE CLINICAL HISTORY: pain/swelling. wound on left anterior paul broke open today, patient on thinners fo r right leg dvt, pain and swelling on the left SIDE PERFORMED: Left TECHNIQUE: The lower extremity deep venous system is examined utilizing real time linear array sonog conner with graded compression, doppler sonography and color-flow sonography. VESSELS IMAGED: Common Femoral Vein Deep Femoral Vein Greater Saphenous Vein * Femoral Vein Popliteal Vein Small Saphenous Vein * Proximal Calf Veins (* superficial vessels) Left Leg: Negative for DVT IMPRESSION: No evidence for DVT at this time.
[2021-07-20] MEDS ORDERED: HYDROmorphone 1 MG/ML 1 ML SYRINGE IVP STA (11:37)
--- NOTE | 2021-07-20 11:38 | ED ---
Extremity Problem HPI - General Chief complaint: Extremity Problem,Nontraumatic Stated complaint: revisit/leg issues Time Seen by Provider: 07/20/21 09:00 Source: patient, RN notes reviewed Mode of arrival: ambulatory Limitations: physical limitation - History of Present Illness Initial comments: Patient is a 61-year-old male that presents to emergency room complaining of left lower extremity. He notes he was seen's just over a week ago diagnosed wit h DVT put on a loquacious is been taking that as prescribed. He notes that yesterday he was walking up several steps and on the second step he noted that his medial left ankle burst open and started bleeding. He notes that it is exquisitely tender to the touch approximately a 10 out of 10 with no relief. Patient notes that he does have several injuries to the ankle in the past and DVT her legs were he was just concerned. He notes that he did have to switch his primary care to get insurance issues. Patient was otherwise a well- appearing 61-year-old male in no apparent distress or pain. She denied any chest pain shortness of breath headache nausea vomiting diarrhea constipation fever fatigue chills. - Related Data Home Medications Medication Instructions Recorded Confirmed Acetaminophen Tab [Tylenol Tab] 500 mg PO Q6H PRN 07/20/21 07/20/21 Apixaban [Eliquis] 5 mg PO BID 07/20/21 07/20/21 Previous Rx's Medication Instructions Recorded Cephalexin [Keflex] 500 mg PO Q6HR #40 cap 07/20/21 Allergies Allergy/AdvReac Type Severity Reaction Status Date / Time Penicillins Allergy Rash/Hives Verified 07/20/21 12:09 wool Allergy Rash/Hives Verified 07/20/21 12:09 Review of Systems ROS Statement: Those systems with pertinent positive or pertinent negative responses have been documented in the HPI. ROS Other: All systems not noted in ROS Statement are negative. Past Medical History Past Medical History: COPD, Deep Vein Thrombosis (DVT), Hypertension Additional Past Medical History / Comment(s): arthritis, WOUND TO LT ANKLE BY ACHILLES TENDON History of Any Multi-Drug Resistant Organisms: None Reported Past Surgical History: Orthopedic Surgery Additional Past Surgical History / Comment(s): surgery for fx left leg x 3, rt hand, skin grafts Past Anesthesia/Blood Transfusion Reactions: Previous Problems w/ Anesthesia Additional Past Anesthesia/Blood Transfusion Reaction / Comment(s): "i woke up during surgery" Past Psychological History: No Psychological Hx Reported Smoking Status: Current every day smoker Past Alcohol Use History: Abuse, Daily, Heavy Past Drug Use History: Marijuana - Past Family History Mother Family Medical History: Respiratory Disorder Father Family Medical History: Cancer General Exam Limitations: no limitations, physical limitation General appearance: alert, in no apparent distress, obese Head exam: Present: atraumatic, normocephalic, normal inspection Eye exam: Present: normal appearance, PERRL, EOMI. Absent: scleral icterus, conjunctival injection, periorbital swelling Neck exam: Present: normal inspection Respiratory exam: Present: normal lung sounds bilaterally. Absent: respiratory distress, wheezes, rales, rhonchi, stridor Cardiovascular Exam: Present: regular rate, normal rhythm, normal heart sounds. Absent: systolic murmur, diastolic murmur, rubs, gallop, clicks Extremities exam: Present: normal inspection, full ROM, normal capillary refill. Absent: tenderness, pedal edema, joint swelling, calf tenderness Left Lower Leg exam: Present: full ROM, tenderness (Over the medial aspect at the area of the wound), swelling (Surrounding the wound measuring approximately 3 cm x 3 cm), erythema (Medial aspect measuring in total 6 m per 6 cm). Absent: normal inspection, abrasion, laceration, palpable cord, Homans' sign Neurological exam: Present: alert, oriented X3 Psychiatric exam: Present: normal affect, normal mood Skin exam: Present: warm, dry, intact, normal color. Absent: rash Course Vital Signs 07/20/21 08:49 Temperature 98.1 F Pulse Rate 85 Respiratory 18 Rate Blood Pressure 146/102 O2 Sat by Pulse 95 Oximetry Medical Decision Making - Medical Decision Making 61-year-old male complaining of a left lower extremity wound, recently diagnosed DVT and started on a course. Ultrasound, x-ray, labs, 1 culture, 4 mg of morphine ordered. Labs unremarkable. Ultrasound negative for any DVT. X-ray negative for any acute fractures or dislocations. Wound care using a nonadhesive gauze, bacitracin Kerlix and Freddie bandage applied. Case discussed with Dr. Man, patient discharge home. With follow-up wound clinic. - Lab Data Result diagrams: 07/20/21 09:17 07/20/21 09:17 Lab Results 07/20/21 07/20/21 Range/Units 09:17 09:17 WBC 10.0 (3.8-10.6) k/uL RBC 4.99 (4.30-5.90) m/uL Hgb 17.0 (13.0-17.5) gm/dL Hct 48.8 (39.0-53.0) % MCV 97.8 (80.0-100.0) fL MCH 34.0 (25.0-35.0) pg MCHC 34.8 (31.0-37.0) g/dL RDW 11.8 (11.5-15.5) % Plt Count 313 (150-450) k/uL MPV 7.2 Neutrophils % 73 % Lymphocytes % 15 % Monocytes % 7 % Eosinophils % 4 % Basophils % 1 % Neutrophils # 7.3 (1.3-7.7) k/uL Lymphocytes # 1.6 (1.0-4.8) k/uL Monocytes # 0.7 (0-1.0) k/uL Eosinophils # 0.4 (0-0.7) k/uL Basophils # 0.1 (0-0.2) k/uL Sodium 136 L (137-145) mmol/L Potassium 4.5 (3.5-5.1) mmol/L Chloride 100 (98-107) mmol/L Carbon Dioxide 27 (22-30) mmol/L Anion Gap 9 mmol/L BUN 15 (9-20) mg/dL Creatinine 0.82 (0.66-1.25) mg/dL Est GFR (CKD-EPI)AfAm >90 (>60 ml/min/1.73 sqM) Est GFR (CKD-EPI)NonAf >90 (>60 ml/min/1.73 sqM) Glucose 105 H (74-99) mg/dL Calcium 9.4 (8.4-10.2) mg/dL Total Bilirubin 0.6 (0.2-1.3) mg/dL AST 24 (17-59) U/L ALT 24 (4-49) U/L Alkaline Phosphatase 114 (38-126) U/L Total Protein 7.5 (6.3-8.2) g/dL Albumin 3.9 (3.5-5.0) g/dL - Radiology Data Radiology results: report reviewed, image reviewed Ultrasound of left lower extremity: Negative for DVT. X-ray of the left tib-fib: No radiographic evidence for acute osteomyelitis. Disposition Clinical Impression: Venous stasis ulcer of ankle Disposition: HOME SELF-CARE Condition: Stable Instructions (If sedation given, give patient instructions): Chronic Wounds (ED) Additional Instructions: Please return to the Emergency Department if symptoms worsen or any other concerns. Follow-up with primary care in 1-2 days. Follow-up with wound care clinic. Gradually increased compression of a pain and swelling goes down. Continue anticoagulation Prescriptions: Cephalexin [Keflex] 500 mg PO Q6HR #40 cap Is patient prescribed a controlled substance at d/c from ED?: No Referrals: Jesus De León MD [Primary Care Provider] - 1-2 days [facility] [NON-STAFF] - 1-2 days Time of Disposition: 12:16
[2021-07-20] MEDS ORDERED: BACITRACIN OINT 1 EACH PACKET TOPICAL ONE (12:01)
[2021-07-20] MEDS ORDERED: traMADol 50 MG STARTER PACK 3 TAB BTL PO STA (12:24)
[2021-07-20 13:07] VITALS: BP 135/72; PULSE 74
== END 2021-07-20 13:06 | disposition home or self-care (01) ==
LOC: EC 08:08
DX: I83.023 Varicose veins of left lower extremity with ulcer of ankle (principal); L97.329 Non-pressure chronic ulcer of left ankle with unspecified severity; J44.9 Chronic obstructive pulmonary disease, unspecified; I10 Essential (primary) hypertension; M19.90 Unspecified osteoarthritis, unspecified site; F17.200 Nicotine dependence, unspecified, uncomplicated; F12.90 Cannabis use, unspecified, uncomplicated; Z86.718 Personal history of other venous thrombosis and embolism
CPT/HCPCS: 36415; 80053; 85025; 87070; 87205; 73590; 93971; 99284; 96374; 96375; J2270; J1170

== ENCOUNTER → 2023-10-06 | Outpatient (CLI) | payer OTHER ==
--- NOTE | 2023-10-06 10:55 | CT ---
EXAMINATION TYPE: CT brain wo con DATE OF EXAM: 10/06/2023 COMPARISON: None available. HISTORY: Dizziness and ataxia for a few weeks. CT DLP: 1201 mGycm Automated exposure control for dose reduction was used. FINDINGS: There is no acute intracranial hemorrhage, mass, mass effect, midline shift, extra-axial fluid collec tion or hydrocephalus. The dc-white distinction is intact without evidence of an acute major vessel infarct. IMPRESSION: NO ACUTE INTRACRANIAL PROCESS.
[2023-10-06 16:21] LABS: Basophils # (A) 0.08 X 10*3/uL (0.00-0.10); Basophils % (A) 0.9 %; Eosinophils # (A) 0.28 X 10*3/uL (0.04-0.35); Eosinophils % (A) 3.1 %; HCT 49.6 % (39.6-50.0); HGB 16.5 g/dL (13.0-17.0); Lymphocytes # (A) 1.75 X 10*3/uL (0.90-5.00); Lymphocytes % (A) 19.1 %; MCH 31.7 pg (27.0-32.0); MCHC 33.3 g/dL (32.0-37.0); MCV 95.4 FL (80.0-97.0); Mean Platelet Volume 9.4 FL (9.5-12.2); Monocytes # (A) 0.73 X 10*3/uL (0.20-1.00); NRBC Per 100 WBC 0 X 10*3/uL (0.00-0.01); Neutrophils # (A) 6.29 X 10*3/uL (1.80-7.70); Neutrophils % (A) 68.6 %; Platelet Count 225 X 10*3/uL (140-440); RDW 12.6 % (11.5-14.5); WBC 9.16 X 10*3/uL (4.50-10.00)
[2023-10-06 16:44] LABS: ALT 37 U/L (10-49); AST 23 U/L (14-35); Albumin 4.3 g/dL (3.8-4.9); Albumin/Globulin Ratio 1.48 Ratio (1.60-3.17); Alkaline Phosphatase 96 U/L (41-126); BUN/Creat Ratio 15.11 Ratio (12.00-20.00); Blood Urea Nitrogen 13.6 mg/dL (9.0-27.0); Calcium 9.8 mg/dL (8.7-10.3); Carbon Dioxide 25.6 mmol/L (21.6-31.8); Chloride 103 mmol/L (96-109); Chol/HDL Ratio 4.56 Ratio; Globulin 2.9 g/dL (1.6-3.3); Glucose 89 mg/dL (70-110); LDL Cholesterol,Calculated 123.5 mg/dL (0.0-131.0); Potassium 4.5 mmol/L (3.5-5.5); Prostate Specific Antigen 0.47 ng/mL (0.000-4.500); Sodium 141 mmol/L (135-145); Total Bilirubin 0.6 mg/dL (0.3-1.2); Total Protein 7.2 g/dL (6.2-8.2)
== END | disposition home or self-care (01) ==
LOC: RADCTMAIN 10:20
PROVIDERS: ATTEND Internal Medicine
DX: Z12.5 Encounter for screening for malignant neoplasm of prostate (principal); R42 Dizziness and giddiness; R07.9 Chest pain, unspecified; I10 Essential (primary) hypertension
CPT/HCPCS: 70450; 80053; 80061; 82607; 82746; 84153; 84443; 85025; 86780; 93005

== ENCOUNTER → 2023-11-02 | Outpatient (CLI) | payer OTHER ==
--- NOTE | 2023-11-02 10:56 | US ---
EXAMINATION TYPE: US carotid duplex BILAT DATE OF EXAM: 11/02/2023 COMPARISON: NONE CLINICAL INDICATION: Male, 63 years old with history of R270 ATAXIA; no stroke history, no symptoms TECHNIQUE: Carotid duplex ultrasound examination. Indirect Doppler criteria was utilized. FINDINGS: EXAM MEASUREMENTS: RIGHT: Peak Systolic Velocity (PSV) cm/sec ----- Right CCA: 96.8 ----- Right ICA: 80.3 ----- Right ECA: 127 ICA/CCA ratio: 0.8 RIGHT: End Diastole cm/sec ----- Right CCA: 24.7 ----- Right ICA: 27.0 ----- Right ECA: 18.2 LEFT: Peak Systolic Velocity (PSV) cm/sec ----- Left CCA: 115.0 ----- Left ICA: 84.3 ----- Left ECA: 93.5 ICA/CCA ratio: 0.7 LEFT: End Diastole cm/sec ----- Left CCA: 20.6 ----- Left ICA: 25.2 ----- Left ECA: 10.3 VERTEBRALS (direction of flow): Right Vertebral: Antegrade Left Vertebral: Antegrade Rhythm: Normal JEWEL [facility]ARING BROACHER NOTES: Mild homogeneous plaque with no stenosis seen IMPRESSION: Less than 50% stenosis of the bilateral carotid bifurcations. Criteria for Assigning % of Stenosis / Diameter reduction (Estimation based on the indirect measurements of the internal carotid artery velocities (ICA PSV). 1. Normal (no stenosis)=ICA PSV < 125 cm/s: ratio < 2.0: ICA EDV<40 cm/s. 2. Less than 50% stenosis=ICA PSV < 125 cm/s: ratio < 2.0: ICA EDV<40 cm/s. 3. 50 to 69% stenosis=ICA PSV of 125 to 230 cm/s: ration 2.0 ? 4.0: ICA EDV 40-100 cm/s. 4. Greater than 70% stenosis to near occlusion= ICA PSV > 230 cm/s: ratio > 4.0: ICA EDV > 100 cm/s. 5. Near occlusion= ICA PSV velocities may be low or undetectable: variable ratio and ICA EDV. 6. Total occlusion=unable to detect flow.
--- NOTE | 2023-11-02 12:33 | CA ---
Transthoracic Echo Report Name: Bo Gaines Age: 63 Gender: M : 1960 Exam Date: 11/02/2023 10:45 Exam Location: [facility] Ht (in): 74 Wt (lb): 340 Ordering Physician: Jesus De León MD Attending/Referring Phys: Director Of Purchasing Rukhsana Pineda [facility] Procedure CPT: Indications: R27.0 ATAXIA, UNSPECIFIED Cardiac Hx: Technical Quality: Technically difficult study Contrast 1: Definity Total Dose (mL): 4 Contrast 2: Total Dose (mL): MEASUREMENTS (Male / Female) Normal Values 2D ECHO LV Diastolic Diameter PLAX 5.4 cm 4.2 - 5.9 / 3.9 - 5.3 cm LV Systolic Diameter PLAX 4.0 cm IVS Diastolic Thickness 1.2 cm 0.6 - 1.0 / 0.6 - 0.9 cm LVPW Diastolic Thickness 1.2 cm 0.6 - 1.0 / 0.6 - 0.9 cm LV Relative Wall Thickness 0.4 Ascending Aorta Diameter 3.6 cm M-MODE Aortic Root Diameter MM 3.8 cm LA Systolic Diameter MM 3.2 cm LA Ao Ratio MM 0.8 AV Cusp Separation MM 2.8 cm DOPPLER AV Peak Velocity 70.0 cm/s AV Peak Gradient 2.0 mmHg AV Mean Velocity 56.9 cm/s AV Mean Gradient 1.3 mmHg AV Velocity Time Integral 15.0 cm LVOT Peak Velocity 74.7 cm/s LVOT Peak Gradient 2.2 mmHg LVOT Velocity Time Integral 17.8 cm Mitral E Point Velocity 44.8 cm/s Mitral A Point Velocity 57.5 cm/s Mitral E to A Ratio 0.8 MV Deceleration Time 206.2 ms LV E' Lateral Velocity 11.1 cm/s Mitral E to LV E' Lateral Ratio 4.1 LV E' Septal Velocity 6.0 cm/s Mitral E to LV E' Septal Ratio 7.5 TR Peak Velocity 232.2 cm/s TR Peak Gradient 21.6 mmHg Right Atrial Pressure 8.0 mmHg Pulmonary Artery Systolic Pressu 29.6 mmHg Right Ventricular Systolic Press 29.6 mmHg FINDINGS Left Ventricle Mildly increased left ventricular wall thickness. Left ventricular cavity size normal. Mildly reduced left ventricular systolic function. Left ventricular ejection fraction is estimated at 45-50%. Right Ventricle Right ventricle not well visualized but appears dilated. Right Atrium Mild right atrial dilatation. Left Atrium Normal left atrial size. Mitral Valve Mitral valve not well visualized. No mitral regurgitation. Aortic Valve Trileaflet aortic valve. No aortic valve stenosis or regurgitation. Tricuspid Valve Tricuspid valve not well visualized. Trace tricuspid regurgitation. Pulmonic Valve Pulmonic valve not well visualized. Pericardium No pericardial effusion. Aorta Mildly dilated aortic root and normal proximal ascending aorta. CONCLUSIONS Mildly increased left ventricular wall thickness Mildly reduced left ventricular ejection fraction 45-50% Trace tricuspid regurgitation Previewed by: Dr. Meek Cochran DO (Electronically Signed) Final Date: 02 November 2023 12:33
--- NOTE | 2023-11-05 15:48 | MR ---
EXAMINATION TYPE: MR brain wo/w con DATE OF EXAM: 11/02/2023 9:37 AM CLINICAL INDICATION:Male, 63 years old with history of R27.0 ATAXIA, UNSPECIFIED, Ataxia. COMPARISON: 10/06/2023. TECHNIQUE: Multi planar, multi sequence imaging was performed through the brain including: T1, T2, In version recovery, susceptibility weighted imaging and gradient echo imaging and Diffusion weighted im aging. The patient was then given intravenous contrast and multi planar, T1 fat-saturation images wer e obtained. IV Contrast: 16 cc Gadavist FINDINGS: Moderate cerebral atrophy with proportional dilation of ventricular system. Remote injury to the left noa. Remote injury to the right occipital lobe. Remote injury to the right cerebral hemisphere. No abnormal postcontrast enhancement. Diffusion-weighted imaging shows no evidence of restricted diffusi on to suggest acute/subacute infarct. Intracranial arterial flow voids are maintained. Midline struct ures show no abnormality. Scattered foci of high T2 signal intensity are seen within the periventricu lar white matter. The susceptibility weighted images do not reveal any evidence for micro-hemorrhage. After administration of gadolinium, no abnormal enhancement is seen. The bone marrow signal is within normal limits. Paranasal sinuses and mastoid air cells: Mild paranasal sinus mucosal thickening. Visualized orbits: Orbital contents are intact. IMPRESSION: 1. No evidence of intracranial mass, acute/subacute infarct, or abnormal enhancement. 2. Remote injuries and Nonspecific white matter changes, likely related to small vessel ischemic dise ase.
== END | disposition home or self-care (01) ==
LOC: RADMRIMAIN 08:41
PROVIDERS: ATTEND Internal Medicine
DX: I65.23 Occlusion and stenosis of bilateral carotid arteries (principal); G93.89 Other specified disorders of brain; I36.1 Nonrheumatic tricuspid (valve) insufficiency; R27.0 Ataxia, unspecified
CPT/HCPCS: 93306; 93880; 70553; Q9957; A9585

== ENCOUNTER → 2023-11-04 | Outpatient (CLI) | payer OTHER ==
[~2023-11-04] MED LIST: REGADENOSON 0.4 MG/5 ML SYRINGE IV ONE
--- NOTE | 2023-11-04 17:59 | NM ---
EXAMINATION TYPE: NM stress lexiscan cardiolite DATE OF EXAM: 11/04/2023 COMPARISON: NONE CLINICAL INDICATION: Male, 63 years old with history of R07.9 chest pain; TECHNIQUE: After the intravenous administration of 10.1 mCi Tc 99m Sestamibi - Cardiolite resting SP ECT images acquired 50 minutes post injection. The patient received 0.4mg Lexiscan, 26.6 mCi Tc 99m Sestamibi - Stress images obtained [address] injection FINDINGS: Review of stress and rest SPECT images demonstrates fixed perfusion defect along the inferior wall wh ich could reflect prominent diaphragmatic attenuation artifact. However, some reversibility suggested at the lateral apex. Gated analysis shows slight global hypokinesis with an estimated left ventricular ejection fraction o f 51 %. TID is increased at 1.27. IMPRESSION: 1. Suspected prominent diaphragmatic attenuation artifact along the inferior wall rather than old inf arct. 2. However, unable to exclude small area reversibility along the lateral apex. 3. In addition, the transient ischemic dilatation ratio is elevated. This can be seen in the setting of multivessel, global, inducible ischemia. Further appropriate workup and evaluation recommended. 4. Mildly diminished LVEF of 51%.
== END | disposition home or self-care (01) ==
LOC: RADNMMAIN 08:26
PROVIDERS: ATTEND Internal Medicine
DX: R07.9 Chest pain, unspecified (principal)
CPT/HCPCS: 93017; 78452; A9500; J2785

== ENCOUNTER 2024-02-01 07:39 | Day surgery (SDC) | payer OTHER ==
[2024-01-31 11:13] VITALS: BMI 42.3
[2024-02-01 08:25] VITALS: TEMP 97.3
[2024-02-01] MEDS: LACTATED RINGERS 1,000 ML IV SCH (08:33)
[2024-02-01] MEDS ORDERED: PROPOFOL 10 MG/ML 20 ML VIAL IV ONE (09:00)
--- NOTE | 2024-02-01 09:18 | P.PCN ---
Date of Procedure: 02/01/24 Procedure(s) Performed: BRIEF HISTORY: Patient is a 63-year-old pleasant white male scheduled for an elective colonoscopy as a part of screening for colon cancer. PROCEDURE PERFORMED: Colonoscopy with biopsy and snare polypectomy. PREOPERATIVE DIAGNOSIS: Screening for colon cancer. IV sedation per Anesthesia. PROCEDURE: After informed consent was obtained, the patient, was brought into the endoscopy unit. IV sedation was administered by Anesthesia under continuous monitoring. Digital rectal examination was normal. Initially the Olympus CF-160 flexible video colonoscope was then inserted in the rectum, gradually advanced into the cecum without any difficulty. Careful examination was performed as the scope was gradually being withdrawn. Ileocecal valve and the appendiceal orifice were visualized and appeared normal. Prep was excellent. Mucosa of the cecum, ascending colon, appeared normal. The transverse colon there was a 3 mm polyp that was removed by cold biopsy. Rest of the transverse colon, appeared normal. The descending colon there was a 6 minute a polyp removed by cold snare polypectomy. Scattered left sided diverticulosis seen. Rest of the descending colon, sigmoid colon, and rectum appeared normal. In the proximal rectum there was a 5 mm polyp removed by cold snare polypectomy. Retroflexion was performed in the rectum and no lesions were seen. The patient tolerated the procedure well. IMPRESSION: 3 mm transverse colon polyp serous was cold biopsy 6 mm descending colon polyp status post cold snare polypectomy 5 mm rectal polyp status post cold snare polypectomy Scattered diffuse diverticulosis RECOMMENDATIONS: Findings of this examination were discussed with the patient as well as his family..He was advised to follow up with the biopsy results. If the biopsy reveals adenoma he can have a repeat colonoscopy in 5 years
[2024-02-01 10:19] VITALS: BP 148/82; PULSE 69; RESP 20
== END 2024-02-01 09:58 | disposition home or self-care (01) ==
LOC: ORWHC2ENDO 07:39
PROVIDERS: ATTEND Internal Medicine Gastroenterology
DX: Z12.11 Encounter for screening for malignant neoplasm of colon (principal); D12.4 Benign neoplasm of descending colon; K62.1 Rectal polyp; K57.30 Diverticulosis of large intestine without perforation or abscess without bleeding; I50.9 Heart failure, unspecified; F17.210 Nicotine dependence, cigarettes, uncomplicated; Z88.0 Allergy status to penicillin
CPT/HCPCS: 88305; 45380; 45385; J2704

== ENCOUNTER → 2025-01-25 | Outpatient (CLI) | payer MEDICAID ==
--- NOTE | 2025-01-25 10:51 | XR ---
EXAMINATION TYPE: XR lumbar spine 2 or 3V, XR sacrum coccyx DATE OF EXAM: 01/25/2025 10:45 AM COMPARISON: None. CLINICAL INDICATION: Male, 64 years old with history of M54.50 LOW BACK PAIN, UNSPECIFIED M53.3 SACRO COCCY, TECHNIQUE: 3 views of the lumbar spine are submitted as well as 3 views of the sacrum and coccyx. FINDINGS: There are 5 lumbar type vertebral bodies identified. The lumbar spine shows satisfactory alignment without evidence of acute fracture or dislocation. Vertebral body heights are within normal limits. Mild multilevel degenerative disc space narrowing throughout the lumbar spine. Moderate face t joint arthropathy. Sacrum and coccyx are grossly intact. The overlying soft tissue appears unremark able. IMPRESSION: No acute fracture or dislocation is seen in the lumbar spine.ICD 10 NO FRACTURE, INITIAL EVALUATION [facility] Uriel Briscoe, , 01/25/2025 10:48 AM
== END | disposition home or self-care (01) ==
LOC: RADXRMAIN 10:10
PROVIDERS: ATTEND Family Medicine
DX: M54.50 Low back pain, unspecified (principal); M53.3 Sacrococcygeal disorders, not elsewhere classified
CPT/HCPCS: 72100; 72220